=== PATIENT | male | born 1995 | race Caucasian/White ===

== ENCOUNTER 2024-10-21 15:48 | Emergency (ER) | payer OTHER, SELFPAY ==
[2024-10-21 15:55] VITALS: BP 124/84
--- NOTE | 2024-10-21 18:30 | ED.GENMED ---
History of Present Illness
General
Chief Complaint: Sleep Disturbances
Source: patient
Exam Limitations: none
Time Seen by Provider: 10/21/24 18:08
History of Present Illness
History of Present Illness:
29-year-old male presents with 2 years worth of insomnia and anxiety. He states it got worse over the past 6 weeks. It is affecting his daily life he is having trouble functioning at work. He has tried a laundry list of medications for this.
Currently he is on mirtazapine. None of the medications he has tried have worked for his sleep. He states he sleeps only a couple hours a night. At times he does sleep an hour or 2 or maybe 3 during the day as well. He denies any racing thoughts.
Past History
Past History
ED Past Medical History: Psychiatric (Anxiety); Negative HTN, Hypercholesterolemia, IDDM or NIDDM
Social History
Tobacco: Non-smoker
Alcohol: None
Drug: None
Employment: Employed
Phy Exam
Physical Exam
Physical Exam:
General: Well-appearing male slightly anxious no acute respiratory distress
HEENT: Normocephalic atraumatic
Heart: Regular rate and rhythm
Lungs: Clear no wheeze
Psychiatric exam: Cooperative calm seems slightly anxious but has a normal rate of speech. Does not endorse any hallucinations or racing thoughts. Does admit to decreased appetite.
Course
Orders/Labs/Results
Orders:
Orders
10/21/24 18:33
Electrocardiogram (*1) Urgent
Reason for Study: Chest Pain
EKG- Treatment ONCE
10/21/24 19:06
Complete Blood Count/With Diff Urgent
Comprehensive Metabolic Panel Urgent
TSH Reflex To Free T4 Urgent
Vitamin B12 Urgent
Vitamin D, 25-OH Urgent
10/21/24 19:22
Crisis Consult Urgent
Reason for Consult: self harm
10/21/24 20:26
Trazodone [Desyrel] 50 mg PO NOW STA
Abnormal Lab Results
10/21/24
19:06
WBC 14.1 H 10^3/uL
(4.8-10.8)
MCH 31.5 H pg
(27.0-31.0)
Abs Immat Gran (auto) 0.1 H 10^3/uL
(0-0.05)
Absolute Neuts (auto) 9.9 H 10^3/uL
(1.4-6.5)
Absolute Monos (auto) 0.9 H 10^3/uL
(0.1-0.6)
Sodium 134 L mmol/L
(135-145)
Albumin 5.4 H g/dl
(3.5-5.0)
10/21/24 19:06
10/21/24 19:06
Vital Signs
Initial and Last Documented VS:
Initial Vital Signs
Temp Pulse Resp BP Pulse Ox
97.9 F 94 16 124/84 100
10/21/24 15:55 10/21/24 15:55 10/21/24 15:55 10/21/24 15:55 10/21/24 15:55
Last Documented Vital Signs
Temp Pulse Resp BP Pulse Ox
97.9 F 90 18 128/75 100
10/21/24 15:55 10/21/24 19:30 10/21/24 19:30 10/21/24 19:30 10/21/24 19:30
MDM/Problems Addressed
Differential Diagnosis Includes:
Patient presents with insomnia. He has other vague complaints as well. Explained to patient right off the bat that we may not be able to explain why he is having insomnia or be able to help him with it. He was interested in getting blood work to
check his thyroid and other vitamin levels to see if there is anything metabolically abnormal. Blood work and EKG ordered. Also discussed with him that sleeping during the day may affect his rhythm and
Affect his ability to have a good period of sleep at night. Advised that he limit daytime sleeping
*Critical Care Note
Total Time (30-74mins, 75-104mins- exclusive of procedures): Not Applicable
Update Note
Update Note:
Patient reexamined. He states he gets so frustrated at night with his inability to sleep he hits himself in the head. Reinspection does provide some ecchymosis to the right side of his head. This looks old. Pupils are equal round and reactive.
He is neurologically intact. No indication for imaging but did consult crisis for anxiety and potential self-harm. He is denying thoughts of hurting himself. Crisis saw the patient and recommended intensive outpatient which patient is agreeable
to in the meantime will prescribe trazodone for his sleep difficulty.
ED Attending Note
-
Portions of this chart may have been created with voice recognition software.� Occasional wrong word or��sound alike� substitutions may have occurred due to the inherent limitations of voice recognition software.
Discharge Plan
Departure
Patient Disposition: Home (Routine Discharge)
Date of Disposition: 10/21/24
Time of Disposition: 20:43
Patient with high blood pressure during this ER visit?: No
Discharge Problem:
Insomnia
Instructions: Insomnia (DC)
Prescriptions:
New
trazodone 50 mg tablet
50 mg PO HS Qty: 14 0RF
No Action
levocetirizine [Xyzal] 5 mg Tablet
5 mg PO QPM
Referrals:
Emerita Guerrero PA-C [Family Provider] -
Activity Restrictions/Additional Instructions:
Try to limit daytime sleeping. Use trazodone in the evening to help you sleep. Continue to follow-up with resources as provided. Return if needed otherwise
Interventions
Interventions:
*Risk Screen - Suicide Last Done: 10/21/24 15:55
*General Assessment Last Done: 10/21/24 18:33
*Neglect/Abuse Screening Last Done: 10/21/24 15:55
ED- Fall Risk Assessment Last Done: 10/21/24 20:12
*ED COVID-19 Vaccine History Last Done: 10/21/24 20:10
ED-Suicide Risk Assessment Last Done: 10/21/24 20:14
ED- Neurological Assessment Last Done: 10/21/24 20:12
ED-Psychological Assessment Last Done: 10/21/24 18:33
Discharge Date and Time
Print Language: SWEDISH
--- NOTE | 2024-10-21 19:06 | EDRN ---
While placing an IV in the patient this RN noticed there was some yellow / green discoloration on the patient's right forehead. Inquiring about this the patient stated he gets so frustrated with not sleeping that he punches himself in the head
frequently. Informed [facility] so they can discuss this new finding.
[2024-10-21 19:14] LABS: % Basophils 0.4 % (0-2); % Eosinophils 1.3 % (0-6); % Immature Granulocytes 0.5 % (0-0.5); % Lymphocytes 20.8 % (20.5-51.1); % Monocytes 6.5 % (1.7-9.3); % Neutrophils 70.5 % (42.2-75.2); Absolute Basophils 0.1 10^3/uL (0-0.2); Absolute Eosinophils 0.2 10^3/uL (0-0.7); Absolute Immature Granulocytes 0.1 10^3/uL (0-0.05); Absolute Lymphocytes 2.9 10^3/uL (1.2-3.4); Absolute Monocytes 0.9 10^3/uL (0.1-0.6); Absolute Neutrophils 9.9 10^3/uL (1.4-6.5); Hematocrit 48.7 % (39.0-52.0); Hemoglobin 17.2 g/dL (13.0-18.0); Mean Corp Hgb Conc. 35.3 g/dL (33.0-37.0); Mean Corpuscular Hgb 31.5 pg (27.0-31.0); Mean Corpuscular Volume 89.2 fL (80.0-94.0); Mean Platelet Volume 9.2 fL (7.4-10.4); Nucleated Red Blood Cells % 0 % (-); Platelet Count 275 10^3/uL (130-400); Red Blood Cell Count 5.46 10^6/uL (4.70-6.10); Red Cell Dist. Width 12.4 % (11.5-14.5); White Blood Cell Count 14.1 10^3/uL (4.8-10.8)
[2024-10-21 19:30] VITALS: BP 128/75
[2024-10-21 19:32] LABS: ALT (SGPT) 12 U/L (0-50); AST (SGOT) 27 U/L (17-59); Albumin 5.4 g/dl (3.5-5.0); Alkaline Phosphatase 63 U/L (38-126); Blood Urea Nitrogen 15 mg/dl (9-20); Calcium 9.9 mg/dl (8.4-10.2); Carbon Dioxide 28 mmol/L (22-30); Chloride 99 mmol/L (98-107); Glucose 94 mg/dl (70-99); Potassium 4.4 mmol/L (3.5-5.1); Sodium 134 mmol/L (135-145); Total Bilirubin 1.1 mg/dl (0.2-1.3); Total Protein 7.7 g/dl (6.3-8.2); eGFR > 60.00
[2024-10-21 20:00] VITALS: BP 122/65
[2024-10-21 20:04] VITALS: BMI 20.8
[2024-10-21 20:22] LABS: Vitamin B12 467 pg/ml (239-931)
[2024-10-21] MEDS: DESYREL 50 MG PO (20:34)
[2024-10-22 09:18] LABS: Vitamin D, 25-OH*** 23.3 ng/mL (30-80)
== END 2024-10-21 20:55 | disposition home or self-care (01) ==
LOC: EMR 15:48
PROVIDERS: Physician Assistant; EMERGENCY PHYSICIAN Emergency Medicine; FAMILY PHYSICIAN Physician Assistant Medical
DX: G47.00 Insomnia, unspecified (principal); F41.9 Anxiety disorder, unspecified; Z79.899 Other long term (current) drug therapy; S00.83XA Contusion of other part of head, initial encounter; Y33.XXXA Other specified events, undetermined intent, initial encounter
CPT/HCPCS: 99284; 80053; 82306; 82607; 84443; 85025; 93005